=== PATIENT | male | born 1930 | race Caucasian/White ===

== ENCOUNTER 2018-02-16 06:34 | Day surgery (SDC) | payer OTHER ==
[~2018-02-16] VITALS: Ht 170.2 cm; Wt 62.3 kg
[2018-02-16] VITALS (13 sets, daily range): BP systolic 128–191; BP diastolic 71–93; PULSE 60–70; TEMP 36.4–36.7; O2SAT 92–96; Ht 170.2 cm; Wt 62.3 kg
[~2018-02-16 06:34] MED LIST: APIX1TAB PO; FINA5TAB PO; FRRS300 PO; SULF500T36 PO; TAMS0.4C38 PO; TPRSR/25 PO
[2018-02-16] MEDS ORDERED: LIDOCAINE HCL 1% 20 ML VIAL ONE (07:16)
[2018-02-16] MEDS ORDERED: BUPIVACAINE 0.25% 30 ML VIAL ONE (07:16)
[2018-02-16] MEDS ORDERED: BACITRACIN 50000 UNIT VIAL ONE (07:16)
[2018-02-16] MEDS ORDERED: CLINDAMYCIN 600 MG/54 ML D5W IV ONE (07:26)
[2018-02-16] MEDS ORDERED: PRLSR20 PO (07:41)
[2018-02-16] MEDS ORDERED: COEN100C11 PO (07:41)
[2018-02-16] MEDS ORDERED: CLC100 PO (07:44)
[2018-02-16] MEDS ORDERED: MULT-506 PO (07:44)
[2018-02-16] MEDS ORDERED: ONDA4TAB46 PO (07:44)
[2018-02-16] MEDS ORDERED: LUTE6CAP PO (07:45)
--- NOTE | 2018-02-16 08:37 | History and Physical ---
History & Physical Date Feb 16, 2018. Chief Complaint Syncope History of Present Illness The patient is a 87 year old male with complaints of Past Medical/Surgical History Medical Problems: (1) chest pain resolved (2) Heart palpitations Additional History Hepatic Disease: No Kidney Disease: No Hypertension: No Heart Disease: Yes Bleeding Tendencies: Yes Infectious Diseases: No Other: Tachy-danii syndrome with paroxysmal atrial fibrillation Iron deficiency anemia Syncope Orthostatic hypotension Allergies Coded Allergies: Hydrocortisone (Verified Allergy, Unknown, lower extremity swelling, ) pt Penicillins (Verified Allergy, Unknown, rash, 01/05/18) Home Medications Scheduled Apixaban (Eliquis), 2.5 MG PO DAILY Coenzyme Q10 (Ubidecarenone) (Coq-10), 200 PO QD Docusate Sodium (Docusate Sodium), PO QD Ferrous Sulfate (Ferrous Sulfate), 325 MG PO BIDM Finasteride (Proscar), 5 MG PO DAILY Lutein (Lutein), PO QD Metoprolol Succinate (Metoprolol Succinate ER), 12.5 MG PO BID Multivitamin (Multivitamin), 1 TAB PO DAILY Omeprazole (Prilosec), 20 MG PO DAILY Sulfasalazine (Azulfidine), 1,000 MG PO Q6H Tamsulosin Hcl (Flomax), 0.4 MG PO DAILY Scheduled PRN Ondansetron Hcl (Zofran), 4 MG PO for Nausea Physical Examination Addiitonal Comments: The patient is alert and oriented. Mood and affect appeared normal. He answered all questions appropriately. HEENT: Pupils are equal and reactive to light and accommodation. Extraocular movements are intact. The sclerae are anicteric. Neuro: Cranial nerves intact Neck: Patient's neck is supple. He has palpable carotid pulses bilaterally without bruits on auscultation. There is no evidence of jugular venous distention. The thyroid is not enlarged. Lungs: Clear to auscultation bilaterally. He has good air movement without use of accessory muscles. No rales wheezes or rhonchi. Cardiac: Heart demonstrates a regular rate and rhythm. Normal S1 and S2. No murmurs on examination. Chest: Implanted loop recorder and left lower pectoral area Pulses: The patient has palpable radial pulses bilaterally that are equal in intensity Extremities: There was no evidence of hypoperfusion. There is no cyanosis or clubbing. There is no edema. Skin: I did not appreciate any rashes on examination today. Diagnosis Tachy-danii syndrome Paroxysmal atrial fibrillation ASA Classification: ASA Class III Plan of Treatment Insert dual-chamber pacemaker Remove implanted loop recorder
--- NOTE | 2018-02-16 08:37 | Pre Sedation Assessment ---
Pre Sedation Assessment General Date of Sedation: Feb 16, 2018. Vital Signs Past 12 Hours Date Time Temp Pulse Resp B/P (MAP) Pulse Ox O2 Delivery O2 Flow Rate FiO2 02/16/18 07:20 36.7 70 16 143/87 (105) 96 Room Air Review Cardiovascular: regular rate, rhythm Lungs: lungs clear Pre-Sedation Airway Assessment Smoking Status: Former Smoker Hx of Sleep Apnea: No Short Thick Neck: No Thyro-mental Distance: > 3 Finger Breadths Oral Cavity: WNL Mallampati Classification: Class I ASA Classification: Class III NPO Status Date of Last Intake of Fluids: Feb 15, 2018 Time of Last Intake of Fluids: 1899 Date of Last Intake of Solids: Feb 15, 2018 Time of Last Intake of Solids: 1899 Procedure Planning Contraindications for Sedation: None Current Medications Reviewed: Yes Notes The planned sedation has been discussed with the patient. Informed Consent was obtained. I have identified the patient, determined the appropriateness of sedation and have assessed the patient immediately prior to the procedure. All medicine(s) and interventions are by my order.
[2018-02-16] MEDS ORDERED: MIDAZOLAM HCL 5 MG/ML 1 ML VIAL ONE (08:44)
[2018-02-16] MEDS ORDERED: FENTANYL CITRATE INJ 50 MCG/1 ML 2 ML VIAL ONE ×2 (08:44→09:16)
--- NOTE | 2018-02-16 09:49 | Cardiology Procedure Brief Nt ---
Preliminary Cardiology Note Procedure Date Feb 16, 2018. Pre-Procedure Diagnosis Tachy-danii syndrome Post-Procedure Diagnosis Same Procedure(s) Performed Removal of loop recorder. 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
[2018-02-16] MEDS ORDERED: ACETAMINOPHEN 325 MG TAB PO PRN (10:00)
[2018-02-16] MEDS ORDERED: OXYCODONE HCL IR 5 MG TAB (IMMEDIATE RELEASE) PO PRN (11:15)
[2018-02-16] MEDS ORDERED: IV FLUIDS COMPLETED PRN (11:45)
[2018-02-16] MEDS ORDERED: LABETALOL HCL 100 MG TAB PO ONE (12:00)
[2018-02-16] MEDS: SULFASALAZINE 500 MG TAB PO SCH ×3 (12:46→23:21)
[2018-02-16] MEDS: CLINDAMYCIN IV 600 MG in DEXTROSE 5% 50ML 50 ML IV SCH ×2 (17:17→23:20)
[2018-02-16] MEDS: FERROUS SULFATE 325 MG TAB PO SCH (17:17)
--- NOTE | 2018-02-16 18:07 | [facility] Operative Report ---
Operative Report Date of Service Feb 16, 2018. Operative Report Procedure performed: Implantation of dual-chamber permanent pacemaker, removal of patient activated loop record Staff chief security officer: Carlos Hebert MD Indication: Patient is an 79-year-old gentleman with a history of tachy-danii syndrome who recently underwent implantation of a patient activated loop recorder. Patient continues to have symptoms and is known to have rapid heart rates in atrial fibrillation with episodes of bradycardia and syncope. He was therefore felt to be a good candidate for permanent pacemaker due to symptomatic non reversible AV node dysfunction. Dual-chamber device was selected as the patient is currently in sinus rhythm which to maintain AV synchrony. Procedure in detail: The patient was informed of the risks benefits and alternatives to the intended procedure and she wished to proceed. She was taken to the electrophysiology suite in a fasting state. A preoperative antibiotic had been administered. The patient was monitored electrocardiographically throughout today's procedure and conscious sedation was administered per protocol. The area over the previously implanted patient activated loop recorder was then anesthetized using subcutaneous administration of a lidocaine and Marcaine solution. A small incision was made at the site. A proprietary tool was subsequently used for extraction of the previously implanted loop recorder. The resulting incision was closed with a single 2 0 Vicryl suture followed by a running 4 0 Vicryl suture. Steri-Strips and a sterile dressing were applied. The left upper pectoral area was prepped and draped in usual sterile fashion. This area was anesthetized using subcutaneous administration of a xylocaine solution. An incision was made at this site and carried down to the prepectoralis fascia using sharp dissection. Electrocautery was also employed for dissection as well as for hemostasis. A device pocket was fashioned tissues above the pectoralis muscle. Subsequent to this maneuver the left axillary vein was accessed using modified Seldinger technique. Sheaths were placed over guidewires at this site and used to facilitate passage of the pacing leads to the respective chambers under fluoroscopic guidance. This included right atrial and right ventricular leads. Adequate sensing and threshold parameters were obtained prior to Active fixation of the leads to the endocardial surface. The proximal portion leads were then sutured the prepectoral fascia using nonabsorbable suture. The device pocket was irrigated with antibiotic solution. The leads were then attached to the device. The device and leads were then placed in the pocket and pocket was closed in 3 layers of absorbable suture. Steri-Strips and sterile dressing were applied. The device was tested noninvasively prior to conclusion the procedure. The patient tolerated procedure well there no immediate complications. Equipment used: New pulse generator: Assisted Living Manager Medtronic. Model number:[id number] serial number [id number] Right atrial lead: Assisted Living Manager Medtronic. Model number: [id number] serial number [id number] Right ventricular lead: Assisted Living Manager Medtronic. Model number: [id number] serial number [id number] Explanted pulse generator: Assisted Living Manager Medtronic. Model number LN Q 1 1. Serial number [id number] Measured data: Right atrial lead: P-waves measure 2.6 millivolts. Pacing threshold 0.7 volts at 0.4 milliseconds with a pacing impedance of 526 Ohms Right ventricular lead: R-waves measured 12.8 millivolts. Pacing threshold 0.4 volts at 0.4 milliseconds with a pacing impedance of 714 Ohms Impression: Successful implantation of dual-chamber permanent pacemaker Successful removal patient activated loop recorder I attest to the content of the Intraoperative Record and any orders documented therein. Any exceptions are noted below.
[2018-02-16] MEDS: METOPROLOL SUCC 25MG EXT REL TAB PO SCH (21:18)
[2018-02-17 04:17] VITALS: BP 163/79; PULSE 64; TEMP 36.7; O2SAT 94
[2018-02-17] MEDS: SULFASALAZINE 500 MG TAB PO SCH (05:52)
[2018-02-17 06:32] VITALS: BP 151/75; PULSE 65; TEMP 36.5; O2SAT 94
--- NOTE | 2018-02-17 06:58 | DIAGNOSTIC IMAGING REPORT ---
CHEST 2 VIEWS ROUTINE CLINICAL HISTORY: 87 years-old Male presenting with EXACT TIME ORDERED Evaluate for pneumothorax and lead placement. TECHNIQUE: PA and lateral views of the chest were obtained. COMPARISON: 01/05/2018. FINDINGS: Left subclavian pacer with leads in the right atrium and right ventricular apex. Lungs are mildly hyperinflated. Heterogeneity of lung parenchyma. No focal opacity. No pleural effusion or pneumothorax. Degenerative changes of the thoracic spine. Upper abdomen normal. IMPRESSION: 1. Appropriately positioned 2-lead left subclavian pacer. No pneumothorax. 2. Hyperinflation and heterogeneity of lung parenchyma may suggest underlying emphysema. Electronically signed by: Ramon Ruiz M.D. 02/17/2018 6:57 AM Dictated Date/Time: 02/17/2018 6:52 AM
[2018-02-17] MEDS: METOPROLOL SUCC 25MG EXT REL TAB PO SCH (07:45)
[2018-02-17] MEDS: FERROUS SULFATE 325 MG TAB PO SCH (07:46)
[2018-02-17] MEDS ORDERED: FINASTERIDE 5 MG TAB PO SCH (09:00)
[2018-02-17] MEDS ORDERED: TAMSULOSIN HCL 0.4 MG CAP PO SCH (09:00)
[2018-02-17] MEDS ORDERED: PANTOprazole SOD 40 MG TAB PO SCH (09:00)
[2018-02-17] MEDS ORDERED: APIX1TAB PO (10:07)
--- NOTE | 2018-02-17 10:10 | Discharge Instructions ---
Discharge Instructions Date of Service Feb 17, 2018. Admission Reason for Admission: Tachybradycardia Discharge Discharge Diagnosis / Problem: Tachy-danii syndrome Discharge Goals Goal(s): Improve function, Therapeutic intervention Activity Recommendations Activity Limitations: as noted below Lifting Limitations: none Exercise/Sports Limitations: until after follow-up appointment May Resume Sexual Activity: when tolerated Shower/Bathe: keep incision dry Driving or Machine Use: resume 1 day after discharge Keep wound dry and steri-strip intact until f;/u in 1 week. No lifting left arm above shoulder or behind neck for 6 weeks . Instructions / Follow-Up Instructions / Follow-Up f/u with Dr. May's office as previously scheduled. Current Hospital Diet Patient's current hospital diet: AHA Diet (Heart Healthy) Discharge Diet Recommended Diet: AHA Diet (Heart Healthy) Procedures Procedures Performed: IMplant of dual chamber Medtronic pacemaker Pending Studies Studies pending at discharge: no Medical Emergencies . Who to Call and When: Medical Emergencies: If at any time you feel your situation is an emergency, please call 911 immediately. . Non-Emergent Contact Non-Emergency issues call your: Manager Inventory Control Call Non-Emergent contact if: you have a fever, your pain is not controlled, wound has increased drainage, wound has increased redness, wound has increased pain . . "Provider Documentation" section prepared by Fawad Hebert. .
[2018-02-17 10:16] VITALS: BP 151/75; PULSE 65; TEMP 36.5; O2SAT 94
--- NOTE | 2018-02-17 11:47 | Discharge Summary ---
Discharge Summary Admission Date: Feb 16, 2018 at 09:51 Discharge Date: Feb 17, 2018 Discharge Disposition: Home Primary Diagnosis: Tachy-danii syndrome Discharge Instructions Last Recorded Wt (Kilograms): 62.300 Activity Recommendations: limitations as noted below, shower/bathe limit Return to School/Work: no limitations Diet At Discharge: resume previous diet Allergies: Coded Allergies: Hydrocortisone (Verified Allergy, Unknown, lower extremity swelling, ) pt Penicillins (Verified Allergy, Unknown, rash, 01/05/18) Home Health Services: none Additional Instructions: Keep wound dry and Steri-Strips intact until follow-up next week for wound check. No lifting left arm above the shoulder behind the neck for 6 weeks. Resume Eliquis on 02/19/2018 Special Care: Call your doctor if: * Temperature above 101 degrees * Pain not relieved by pain medicine ordered * There is increased drainage or redness from any incision * You have any unanswered questions or concerns. Avoid all tobacco products. If you need help to stop smoking, call [place]'s FREE QUITLINE at . This is a free call. Admission HPI The patient is an 79-year-old gentleman with a history of tachy-danii syndrome and prior syncope. He previously undergone implantation of loop recorder for additional diagnostic reasons. Based on the continue nature of his symptoms and known arrhythmia was advised to consider implantation of dual-chamber permanent pacemaker. Admission Physical Exam Additional Comments: At the time of discharge the patient was alert and oriented. He was comfortable. He has minimal symptoms at the implant site. Both incisions appear to be clean and dry. There is no significant hematoma. There was some mild ecchymosis. No significant erythema. Hospital Course Patient underwent implantation of dual-chamber Medtronic pacemaker on the day of admission. The patient's previously implanted loop recorder was also explanted. He tolerated the procedure well. There were no immediate complications. The following morning the patient underwent chest x-ray which demonstrated stable lead position. No pneumothorax. A device interrogation revealed good function of both the atrial and ventricular leads. Patient was feeling well in the wound appeared to be healing well. He was therefore felt to be in good condition for discharge. Total time spent on discharge = This includes examination of the patient, discharge planning, medication reconciliation, and communication with other providers.
== END 2018-02-17 11:36 | disposition home or self-care (01) ==
LOC: C.ACU 06:34 → EDBEDREQ 09:01 → ENRESERV 09:07 → C.2T 09:51
PROVIDERS: ADMIT Internal Medicine Clinical Cardiac Electrophysiology; ATTEND Internal Medicine Clinical Cardiac Electrophysiology
DX: I49.5 Sick sinus syndrome (principal); I48.0 Paroxysmal atrial fibrillation; D50.9 Iron deficiency anemia, unspecified; I95.1 Orthostatic hypotension; Z88.0 Allergy status to penicillin; Z88.8 Allergy status to other drugs, medicaments and biological substances; Z79.01 Long term (current) use of anticoagulants; Z79.899 Other long term (current) drug therapy